=== PATIENT | female | born 1945 | race Caucasian/White ===

== ENCOUNTER 2018-01-01 13:35 | Emergency (ER) | payer MEDICARE, MEDICAID ==
[2018-01-01] MEDS ORDERED: methylPREDNISolone 125 MG* 2 ML VIAL IV ONE (13:43)
[2018-01-01] MEDS ORDERED: Famotidine IV* 10 MG/ML 2 ML (20 mg) IV SLOW PU ONE (13:43)
--- NOTE | 2018-01-01 13:48 | ED ---
Allergic Reaction/Systemic - HPI Summary HPI Summary: 72 year old F BIB EMS to [facility] complains of allergic reaction s/p multiple bee stings at 13:20. Symptoms aggravated by nothing. Symptoms alleviated by noting. Patient reports bee stings to her jaw, right eyebrow, right ankle, left ear, and left side of back. She additionally complains of slight throat closure, but not significant. EMS administered 50 mg Benadryl and 200 mL normal saline. Patient is allergic to bees. She usually has hives and swelling when she is stung. - History of Current Complaint Time Seen by Provider: 01/01/18 13:38 Hx Obtained From: Patient, EMS Onset/Duration: Sudden Onset, Started minutes ago - 20 minutes, Still Present Timing: Constant Aggravating Factor(s): Nothing Alleviating Factor(s): Nothing Associated Signs And Symptoms: Positive: Other: - bee stings to her jaw, right eyebrow, right ankle, left ear, and left side of back. She additionally complains of slight throat closure, but not significant. - Allergies/Home Medications Allergies/Adverse Reactions: Allergies Allergy/AdvReac Type Severity Reaction Status Date / Time silver sulfadiazine Allergy Severe Rash Verified 01/01/18 14:40 aspirin Allergy Intermediate Rash Verified 01/01/18 14:40 diltiazem Allergy Intermediate Edema Verified 01/01/18 14:40 doxycycline Allergy Intermediate Rash Verified 01/01/18 14:40 Penicillins Allergy Intermediate Rash Verified 01/01/18 14:40 triamterene Allergy Intermediate Hives Verified 01/01/18 14:40 Adhesive Tape Allergy Mild See Comment Verified 01/01/18 13:59 cephalexin Allergy Unknown Unknown Verified 01/01/18 14:40 Reaction Details cetirizine Allergy Unknown Unknown Verified 01/01/18 14:40 Reaction Details clindamycin Allergy Unknown Unknown Verified 01/01/18 14:40 Reaction Details erythromycin base Allergy Unknown Unknown Verified 01/01/18 14:40 Reaction Details lisinopril Allergy Unknown Unknown Verified 01/01/18 14:47 Reaction Details metoprolol Allergy Unknown Unknown Verified 01/01/18 14:47 Reaction Details nabumetone Allergy Unknown Unknown Verified 01/01/18 14:47 Reaction Details Opioids - Morphine Analogues Allergy Unknown Unknown Verified 01/01/18 14:47 Reaction Details Opioids-Meperidine and Allergy Unknown Unknown Verified 01/01/18 14:47 Related Reaction Details Opioids-Methadone and Related Allergy Unknown Unknown Verified 01/01/18 14:47 Reaction Details paroxetine Allergy Unknown Unknown Verified 01/01/18 14:47 Reaction Details ranitidine Allergy Unknown Unknown Verified 01/01/18 14:47 Reaction Details sodium metabisulfite Allergy Unknown Unknown Verified 01/01/18 14:47 Reaction Details azithromycin AdvReac Intermediate GI Upset Verified 01/01/18 14:47 bumetanide AdvReac Intermediate GI Upset Verified 01/01/18 14:47 codeine AdvReac Intermediate Palpitation Verified 01/01/18 14:47 s Iodinated Contrast- Oral and AdvReac Intermediate Pain Verified 01/01/18 14:47 IV Dye iodine AdvReac Intermediate Fever Verified 01/01/18 14:47 torsemide AdvReac Intermediate Palpitation Verified 01/01/18 14:47 s warfarin AdvReac Intermediate See Comment Verified 01/01/18 14:47 lidocaine patch Allergy Intermediate Blisters Uncoded 07/23/15 11:22 spirodela AdvReac Intermediate GI Upset Uncoded 09/14/15 04:32 Home Medications: Home Medications Linagliptin (NF) [Tradjenta (NF)] 5 mg PO DAILY 01/01/18 [History Confirmed ] PMH/Surg Hx/FS Hx/Imm Hx Previously Healthy: No Endocrine/Hematology History: Reports: Hx Anticoagulant Therapy - coumadin, Hx Anemia Denies: Hx Diabetes, Hx Thyroid Disease Cardiovascular History: Reports: Hx Angina, Hx Congestive Heart Failure, Hx Hypertension, Hx Valvular Heart Disease - s/p mitral valve replacement 2006 Denies: Hx Coronary Artery Disease, Hx Hypercholesterolemia, Hx Myocardial Infarction, Hx Pacemaker/ICD Respiratory History: Denies: Hx Asthma, Hx Chronic Obstructive Pulmonary Disease (COPD) GI History: Reports: Hx Gastroesophageal Reflux Disease History: Denies: Hx Renal Disease Musculoskeletal History: Reports: Hx Arthritis - knees, Hx Back Problems - disc issues in lower back and in neck Sensory History: Reports: Hx Cataracts, Hx Contacts or Glasses, Hx Glaucoma Opthamlomology History: Reports: Hx Cataracts, Hx Contacts or Glasses, Hx Glaucoma Neurological History: Denies: Hx Dementia, Hx Seizures Psychiatric History: Reports: Hx Anxiety, Hx Depression Denies: Hx Substance Abuse - Surgical History Surgery Procedure, Year, and Place: Mitral Valve Replacement 2006. Hx Anesthesia Reactions: Yes - multiple allergies to medications - Immunization History Date of Tetanus Vaccine: Unknown Date of Influenza Vaccine: None Infectious Disease History: Denies: Hx Hepatitis, Hx Human Immunodeficiency Virus (HIV) - Family History Known Family History: Positive: Cardiac Disease - [place] - Social History Alcohol Use: None Hx Substance Use: No Substance Use Type: Reports: None Hx Tobacco Use: No Smoking Status (MU): Never Smoked Tobacco Review of Systems Positive: Other - slight throat closure Positive: Other - bee stings to her jaw, right eyebrow, right ankle, left ear, and left side of back All Other Systems Reviewed And Are Negative: Yes Physical Exam - Summary Physical Exam Summary: Appearance: The patient is well-nourished in no acute distress and in no acute pain. Skin: She has bee stings that have mild local reactions diffusely. There are no stingers evident. HEENT: The head is normocephalic and atraumatic. The pupils are equal and reactive. The conjunctivae are clear and without drainage. Nares are patent and without drainage. Mouth reveals moist mucous membranes and the throat is without erythema and exudate. The external ears are intact. The ear canals are patent and without drainage. The tympanic membranes are intact. Neck: The neck is supple with full range of motion and non-tender. There are no carotid bruits. There is no neck vein distension. Respiratory: Chest is non-tender. Lungs are clear to auscultation and breath sounds are symmetrical and equal. Cardiovascular: Heart is regular rate and rhythm. There is no murmur or rub auscultated. There is no peripheral edema and pulses are symmetrical and equal. Abdomen: The abdomen is soft and non-tender. There are normal bowel sounds heard in all four quadrants and there is no organomegaly palpated. Musculoskeletal: There is no back tenderness noted. Extremities are non-tender with full range of motion. There is good capillary refill. There is no peripheral edema or calf tenderness elicited. Neurological: Patient is alert and oriented to person, place and time. The patient has symmetrical motor strength in all four extremities. Cranial nerves are grossly intact. Deep tendon reflexes are symmetrical and equal in all four extremities. Psychiatric: The patient has an appropriate affect and does not exhibit any anxiety or depression. Triage Information Reviewed: Yes Vital Signs Reviewed: Yes Re-Evaluation - Re-Evaluation First Eval Re-Evaluation Time: 14:50 Comment: Patient is feeling better after medication Second Eval Re-Evaluation Time: 16:13 Comment: Patient feels better and is ready to go home Allergic Reaction Course/Dx - Course Course Of Treatment: Ms. Mora presented after being stung multiple times by insects. She had multiple areas of stings on her with no stingers left behind. She had been given Benadryl in the ambulance and was additionally given Pepcid and Solu-Medrol here and observed. She improved and remained stable in the emergency department. - Diagnoses Provider Diagnoses: Allergic reaction Discharge - Sign-Out/Discharge Documenting (check all that apply): Patient Departure - Discharge - Discharge Plan Condition: Stable Disposition: HOME Prescriptions: EPINEPHrine [Epipen 2-Silver] 0.3 mg IM ONCE #1 inj Patient Education Materials: Insect Bite or Sting (ED), General Allergic Reaction (ED) Referrals: Tabitha Rojas MD [Primary Care Provider] - 2 Days Additional Instructions: Follow up with your primary care provider in 2 days. RETURN TO THE EMERGENCY DEPARTMENT FOR NEW OR WORSENING SYMPTOMS. - Billing Disposition and Condition Condition: STABLE Disposition: Home - Attestation Statements Document Initiated by Scribe: Yes Documenting Scribe: Eleonora Ware Provider For Whom Fabien is Documenting (Include Credential): Mickey Obando MD Scribe Attestation: Eleonora Kamara, scribed for Mickey Obando MD on 01/01/18 at 1807. Scribe Documentation Reviewed: Yes Provider Attestation: The documentation as recorded by the scribeEleonora accurately reflects the service I personally performed and the decisions made by me, Mickey Obando MD
[2018-01-01 16:26] VITALS: BP 148/82
== END 2018-01-01 16:50 | disposition home or self-care (01) ==
LOC: ED 13:35
CPT/HCPCS: J2930

== ENCOUNTER 2018-11-23 19:14 | Emergency (ER) | payer MEDICARE, MEDICAID ==
--- NOTE | 2018-11-23 20:34 | ED ---
GI/ HPI - HPI Summary HPI Summary: A 73 y/o female presents to [facility] with a chief complaint of left sided flank pain and back pain since yesterday. She notes that yesterday night and tonight she had tightness of her throat, but has no sore or itching throat, CP, SOB, abd pain, N/V diarrhea, urinary symptoms, new swelling in legs, or fatigue with exertion. She says that Tylenol has not alleviated her symptoms. Stretching alleviates her symptoms. She is on Coumadin. - History of Current Complaint Chief Complaint: EDFlankPain Time Seen by Provider: 11/23/18 19:38 Stated Complaint: SHARP PAIN IN BACK, THROAT SWELLING PER PT Hx Obtained From: Patient Onset/Duration: Started Hours Ago, Still Present Timing: Constant, Lasting Hours Severity: Moderate Current Severity: Moderate Pain Intensity: 6 - out of 10 Location of Pain: Flank Pain Characteristics: Unable to describe Associated Signs and Symptoms: Positive: Back Pain - left lower back, Other: - positive: throat tightening. Negative: Nausea, Vomiting, Diarrhea, Fever, Abdominal Pain, Chest Pain Aggravating Factor(s): Nothing Alleviating Factor(s): Movement - stretching - Allergy/Home Medications Allergies/Adverse Reactions: Allergies Allergy/AdvReac Type Severity Reaction Status Date / Time silver sulfadiazine Allergy Severe Rash Verified 01/01/18 14:40 aspirin Allergy Intermediate Rash Verified 01/01/18 14:40 diltiazem Allergy Intermediate Edema Verified 01/01/18 14:40 doxycycline Allergy Intermediate Rash Verified 01/01/18 14:40 Penicillins Allergy Intermediate Rash Verified 01/01/18 14:40 triamterene Allergy Intermediate Hives Verified 01/01/18 14:40 Adhesive Tape Allergy Mild See Comment Verified 01/01/18 13:59 cephalexin Allergy Unknown Unknown Verified 01/01/18 14:40 Reaction Details cetirizine Allergy Unknown Unknown Verified 01/01/18 14:40 Reaction Details clindamycin Allergy Unknown Unknown Verified 01/01/18 14:40 Reaction Details erythromycin base Allergy Unknown Unknown Verified 01/01/18 14:40 Reaction Details lisinopril Allergy Unknown Unknown Verified 01/01/18 14:47 Reaction Details metoprolol Allergy Unknown Unknown Verified 01/01/18 14:47 Reaction Details nabumetone Allergy Unknown Unknown Verified 01/01/18 14:47 Reaction Details Opioids - Morphine Analogues Allergy Unknown Unknown Verified 01/01/18 14:47 Reaction Details Opioids-Meperidine and Allergy Unknown Unknown Verified 01/01/18 14:47 Related Reaction Details Opioids-Methadone and Related Allergy Unknown Unknown Verified 01/01/18 14:47 Reaction Details paroxetine Allergy Unknown Unknown Verified 01/01/18 14:47 Reaction Details ranitidine Allergy Unknown Unknown Verified 01/01/18 14:47 Reaction Details sodium metabisulfite Allergy Unknown Unknown Verified 01/01/18 14:47 Reaction Details azithromycin AdvReac Intermediate GI Upset Verified 01/01/18 14:47 bumetanide AdvReac Intermediate GI Upset Verified 01/01/18 14:47 codeine AdvReac Intermediate Palpitation Verified 01/01/18 14:47 s Iodinated Contrast- Oral and AdvReac Intermediate Pain Verified 01/01/18 14:47 IV Dye iodine AdvReac Intermediate Fever Verified 01/01/18 14:47 torsemide AdvReac Intermediate Palpitation Verified 01/01/18 14:47 s warfarin AdvReac Intermediate See Comment Verified 01/01/18 14:47 lidocaine patch Allergy Intermediate Blisters Uncoded 07/23/15 11:22 metals Allergy Rash Uncoded 11/23/18 19:18 spirodela AdvReac Intermediate GI Upset Uncoded 09/14/15 04:32 PMH/Surg Hx/FS Hx/Imm Hx Endocrine/Hematology History: Reports: Hx Anticoagulant Therapy - coumadin, Hx Anemia Denies: Hx Diabetes, Hx Thyroid Disease Cardiovascular History: Reports: Hx Angina, Hx Congestive Heart Failure, Hx Hypertension, Hx Valvular Heart Disease - s/p mitral valve replacement 2006 Denies: Hx Coronary Artery Disease, Hx Hypercholesterolemia, Hx Myocardial Infarction, Hx Pacemaker/ICD Respiratory History: Denies: Hx Asthma, Hx Chronic Obstructive Pulmonary Disease (COPD) GI History: Reports: Hx Gastroesophageal Reflux Disease History: Denies: Hx Renal Disease Musculoskeletal History: Reports: Hx Arthritis - knees, Hx Back Problems - disc issues in lower back and in neck Sensory History: Reports: Hx Cataracts, Hx Contacts or Glasses, Hx Glaucoma Opthamlomology History: Reports: Hx Cataracts, Hx Contacts or Glasses, Hx Glaucoma Neurological History: Denies: Hx Dementia, Hx Seizures Psychiatric History: Reports: Hx Anxiety, Hx Depression Denies: Hx Substance Abuse - Surgical History Surgery Procedure, Year, and Place: Mitral Valve Replacement 2006. Hx Anesthesia Reactions: Yes - multiple allergies to medications - Immunization History Date of Tetanus Vaccine: Unknown Date of Influenza Vaccine: None Immunizations Up to Date: Yes Infectious Disease History: No Infectious Disease History: Denies: Hx Hepatitis, Hx Human Immunodeficiency Virus (HIV), Traveled Outside the [place] in Last 30 Days - Family History Known Family History: Positive: Cardiac Disease - [place] - Social History Alcohol Use: None Hx Substance Use: No Substance Use Type: Reports: None Hx Tobacco Use: No Smoking Status (MU): Never Smoked Tobacco Review of Systems Negative: Fever, Fatigue Positive: Other - positive: throat tightening. Negative: Sore Throat Negative: Chest Pain Negative: Shortness Of Breath Negative: Abdominal Pain, Vomiting, Diarrhea, Nausea Positive: flank pain - left. Negative: dysuria, hematuria Positive: Myalgia - left lower back pain All Other Systems Reviewed And Are Negative: Yes Physical Exam - Summary Physical Exam Summary: Constitutional: Well-developed, Well-nourished, Alert. (-) Distressed Skin: Warm, Dry, no rash HENT: Normocephalic; Atraumatic Eyes: Conjunctiva normal Neck: Musculoskeletal ROM normal neck. (-) JVD, (-) Stridor, (-) Tracheal deviation Cardio: Rhythm regular, rate normal, Heart sounds normal; Intact distal pulses; The pedal pulses are 2+ and symmetric. Radial pulses are 2+ and symmetric. (-) Murmur Pulmonary/Chest wall: Effort normal. (-) Respiratory distress, (-) Wheezes, (-) Rales Abd: Soft, left lateral pain extending to left flank, (-) Distension, (-) Guarding, (-) Rebound Musculoskeletal: (-) Edema, tenderness at T7 and again at L5 Lymph: (-) Cervical adenopathy Neuro: Alert, Oriented x3 Psych: Mood and affect Normal Triage Information Reviewed: Yes Vital Signs On Initial Exam: Initial Vitals Temp Pulse Resp BP Pulse Ox 97.9 F 83 18 199/106 99 11/23/18 19:18 11/23/18 19:18 11/23/18 19:18 11/23/18 19:18 11/23/18 19:18 Vital Signs Reviewed: Yes Diagnostics - Vital Signs Vital Signs Temp Pulse Resp BP Pulse Ox 11/23/18 19:18 97.9 F 83 18 199/106 99 - Laboratory Result Diagrams: 11/23/18 22:08 11/23/18 22:08 Lab Statement: Any lab studies that have been ordered have been reviewed, and results considered in the medical decision making process. - Radiology Thoracic spine x-ray Radiology Interpretation Completed By: ED Physician Summary of Radiographic Findings: Compression fracture of undetermined age at T10 and severe kyphosis. Pending official imaging report. - CT abdomen/pelvis CT Interpretation Completed By: Radiologist Summary of CT Findings: 1. No CT findings to correlate with patient's symptomatology. Specifically no obstructing renal or ureteral calculi. 2. Enlarged right ovary. Finding should be further characterized with. nonemergent ultrasound. 3. Distal colonic diverticulosis. ED physician has reviewed this imaging report. GIGU Course/Dx - Course Course Of Treatment: A 73 y/o female presents to [facility] with a chief complaint of left sided flank pain and back pain since yesterday. The physical exam revealed tenderness at T7 and again at L5, left lateral pain extending to left flank, and no rash. In the ED course the patient was given Benadryl PO. Blood work, chemistries and urines obtained and are WNL. Abdomen/pelvis CT impression : 1. No CT findings to correlate with patient's symptomatology. Specifically no obstructing renal or ureteral calculi. 2. Enlarged right ovary. Finding should be further characterized with. nonemergent ultrasound. 3. Distal colonic diverticulosis. Thoracic spine x-ray showed Compression fracture of undetermined age at T10 and severe kyphosis. The pain that she is complaining of is her lower left back and she is only tender in her lower back therefore this is likely not an acute compression fracture and the patient can be discharged and follow up as an outpatient. The patient is agreeable with this plan. - Diagnoses Provider Diagnoses: Back pain, Compression fracture Discharge - Sign-Out/Discharge Documenting (check all that apply): Patient Departure - DC Patient Received Moderate/Deep Sedation with Procedure: No - Discharge Plan Condition: Stable Disposition: HOME Prescriptions: Diclofenac 1% GEL (NF) [Voltaren 1% GEL (NF)] 1 applic TOPICAL BID PRN #1 tube PRN Reason: Pain - Mild Patient Education Materials: Vertebral Compression Fracture (ED), Low Back Strain (ED) Print Language: PERUVIAN Referrals: Tabitha Rojas MD [Primary Care Provider] - - Billing Disposition and Condition Condition: STABLE Disposition: Home - Attestation Statements Document Initiated by Carleyibaung: Yes Documenting Scribe: Mark Dominguez Provider For Whom Fabien is Documenting (Include Credential): Erin Garcia MD Scribe Attestation: IMark, scribed for Erin Zimmer MD on 11/24/18 at 0641. Scribe Documentation Reviewed: Yes Provider Attestation: The documentation as recorded by the Mark benson accurately reflects the service I personally performed and the decisions made by me, Erin Zimmer MD Status of Scribe Document: Viewed
[2018-11-23] MEDS ORDERED: diPHENhydraMINE PO* 50 MG PO ONE (20:52)
[2018-11-23 22:28] LABS: ABS Eosinophils 0.4 10^3/ul (0-0.6); ABS Lymphocytes 1.2 10^3/ul (1.0-4.8); ABS Monocytes 0.5 10^3/ul (0-0.8); ABS Neutrophils 3.7 10^3/ul (1.5-7.7); Eosinophil % 6.1 %; Hematocrit 39 % (35-47); Hemoglobin 12.7 g/dL (12.0-16.0); Lymphocyte % 20.1 %; Mean Corpuscular HGB Conc 32 g/dL (31-36); Mean Corpuscular Hemoglobin 24 pg (27-31); Mean Corpuscular Volume 73 fL (80-97); Mean Platelet Volume 8.5 fL (7.4-10.4); Nucleated Red Blood Cells % 0.1; Platelet Count 268 10^3/uL (150-450); Red Blood Count 5.37 10^6 /uL (3.70-4.87); Red Cell Distribution Width 19 % (10-15); White Blood Count 5.8 10^3/uL (3.5-10.8)
[2018-11-23 22:31] LABS: Urine Appearance Clear; Urine Bilirubin Negative (Negative); Urine Blood Negative (Negative); Urine Color Straw; Urine Glucose Negative (Negative); Urine Ketones Negative (Negative); Urine Nitrite Negative (Negative); Urine Protein Negative (Negative); Urine Specific Gravity 1.004 (1.010-1.030); Urine Urobilinogen Negative (Negative)
[2018-11-23 22:32] LABS: ALT 11 U/L (7-52); AST 14 U/L (13-39); Albumin 4.4 g/dL (3.2-5.2); Albumin/Globulin Ratio 1.3 (1-3); Alkaline Phosphatase 173 U/L (34-104); Anion Gap 7 mmol/L (2-11); BUN/Creatinine Ratio 11.2 (8-20); Blood Urea Nitrogen 10 mg/dL (6-24); C Reactive Protein 6.61 mg/L (<8.01); CO2 Carbon Dioxide 28 mmol/L (22-32); Chloride 100 mmol/L (101-111); Globulin 3.3 g/dL (2-4); Glucose 219 mg/dL (70-100); Potassium 3.9 mmol/L (3.5-5.0); Sodium 135 mmol/L (135-145); Total Protein 7.7 g/dL (6.4-8.9)
[2018-11-23 23:47] VITALS: BP 147/89
== END 2018-11-23 23:25 | disposition home or self-care (01) ==
LOC: ED 19:14
DX: M48.54XA Collapsed vertebra, not elsewhere classified, thoracic region, initial encounter for fracture (principal); M54.9 Dorsalgia, unspecified; D64.9 Anemia, unspecified; K57.30 Diverticulosis of large intestine without perforation or abscess without bleeding; I11.0 Hypertensive heart disease with heart failure; I50.9 Heart failure, unspecified; K21.9 Gastro-esophageal reflux disease without esophagitis; F41.9 Anxiety disorder, unspecified; F32.9 Major depressive disorder, single episode, unspecified; Z79.01 Long term (current) use of anticoagulants; Z88.5 Allergy status to narcotic agent; Z88.0 Allergy status to penicillin; Z88.2 Allergy status to sulfonamides; Z88.8 Allergy status to other drugs, medicaments and biological substances; Z88.6 Allergy status to analgesic agent; Z88.1 Allergy status to other antibiotic agents; Z91.041 Radiographic dye allergy status
CPT/HCPCS: 36415; 72070; 74176; 80053; 81003; 83605; 83690; 85025; 86140; 99283; A9270-GY

== ENCOUNTER 2018-11-28 15:36 | Emergency (ER) | payer MEDICARE, MEDICAID ==
[2018-11-28 17:09] LABS: ABS Eosinophils 0.4 10^3/ul (0-0.6); ABS Lymphocytes 1.2 10^3/ul (1.0-4.8); ABS Monocytes 0.5 10^3/ul (0-0.8); ABS Neutrophils 3.7 10^3/ul (1.5-7.7); Eosinophil % 6.2 %; Hematocrit 39 % (35-47); Hemoglobin 12.3 g/dL (12.0-16.0); Lymphocyte % 20.7 %; Mean Corpuscular HGB Conc 32 g/dL (31-36); Mean Corpuscular Hemoglobin 23 pg (27-31); Mean Corpuscular Volume 74 fL (80-97); Mean Platelet Volume 8.2 fL (7.4-10.4); Nucleated Red Blood Cells % 0.1; Platelet Count 250 10^3/uL (150-450); Red Blood Count 5.29 10^6 /uL (3.70-4.87); Red Cell Distribution Width 19 % (10-15); White Blood Count 5.9 10^3/uL (3.5-10.8)
[2018-11-28 17:18] LABS: Albumin 4.3 g/dL (3.2-5.2); Albumin/Globulin Ratio 1.3 (1-3); BUN/Creatinine Ratio 10.2 (8-20); C Reactive Protein 4.53 mg/L (<8.01); Calcium 9.6 mg/dL (8.6-10.3); EGFR Non-African American 62.8 (>60); Globulin 3.2 g/dL (2-4); Potassium 4.1 mmol/L (3.5-5.0); Total Bilirubin 0.4 mg/dL (0.2-1.0); Total Protein 7.5 g/dL (6.4-8.9)
[2018-11-28 18:37] LABS: Urine Appearance Cloudy; Urine Bacteria 1+ (Absent); Urine Bilirubin Negative (Negative); Urine Blood Negative (Negative); Urine Color Straw; Urine Glucose Negative (Negative); Urine Ketones Negative (Negative); Urine Nitrite Negative (Negative); Urine Protein Negative (Negative); Urine Red Blood Cell Trace(0-2/hpf) (Absent); Urine Specific Gravity 1.005 (1.010-1.030); Urine Squamous Epithelial Cell Present (Absent); Urine Urobilinogen Negative (Negative); Urine White Blood Cell 1+(6-10/hpf) (Absent)
--- NOTE | 2018-11-28 19:42 | ED ---
Abdominal Pain/Female - HPI Summary HPI Summary: This patient is a 73 year old F presenting to [facility] with a chief complaint of burning lower left abdominal pain since today. Pt came into the ED on 11/21/18 for back pain, and was given a prescription gel (diclofenac), which caused her skin on back to become very sensitive, and caused it to burn. Pt also had a blister on her back, which drained. Patient reports since last night she nausea , vomiting, abdominal pain, loss of appetite so she came to ED. She also reports chronic upper back pain, and sharp lower back pain (beginning 11/22/18) for which she used the gel. Patient denies burning during urination, no fevers. No vaginal bleeding. Pt has a PMHx of gall bladder issues, diabetic, and heart issues. - History of Current Complaint Chief Complaint: EDFlankPain Stated Complaint: LT SIDE PAIN/VOMITING PER PT Time Seen by Provider: 11/28/18 18:12 Hx Obtained From: Patient Onset/Duration: Gradual Onset, Lasting Days, Still Present Timing: Constant Severity Initially: Moderate Severity Currently: Moderate Pain Intensity: 6 Pain Scale Used: 0-10 Numeric Location: Flank Radiates: Yes Radiates to: Back Character: Burning Alleviating Factor(s): Nothing Associated Signs and Symptoms: Positive: Decreased Appetite, Nausea, Vomiting, Other: - pos - chronic upper back pain, and sharp lower back pain. Negative: Urinary Symptoms Allergies/Adverse Reactions: Allergies Allergy/AdvReac Type Severity Reaction Status Date / Time silver sulfadiazine Allergy Severe Rash Verified 01/01/18 14:40 aspirin Allergy Intermediate Rash Verified 01/01/18 14:40 diltiazem Allergy Intermediate Edema Verified 01/01/18 14:40 doxycycline Allergy Intermediate Rash Verified 01/01/18 14:40 Penicillins Allergy Intermediate Rash Verified 01/01/18 14:40 triamterene Allergy Intermediate Hives Verified 01/01/18 14:40 Adhesive Tape Allergy Mild See Comment Verified 01/01/18 13:59 cephalexin Allergy Unknown Unknown Verified 01/01/18 14:40 Reaction Details cetirizine Allergy Unknown Unknown Verified 01/01/18 14:40 Reaction Details clindamycin Allergy Unknown Unknown Verified 01/01/18 14:40 Reaction Details erythromycin base Allergy Unknown Unknown Verified 01/01/18 14:40 Reaction Details lisinopril Allergy Unknown Unknown Verified 01/01/18 14:47 Reaction Details metoprolol Allergy Unknown Unknown Verified 01/01/18 14:47 Reaction Details nabumetone Allergy Unknown Unknown Verified 01/01/18 14:47 Reaction Details Opioids - Morphine Analogues Allergy Unknown Unknown Verified 01/01/18 14:47 Reaction Details Opioids-Meperidine and Allergy Unknown Unknown Verified 01/01/18 14:47 Related Reaction Details Opioids-Methadone and Related Allergy Unknown Unknown Verified 01/01/18 14:47 Reaction Details paroxetine Allergy Unknown Unknown Verified 01/01/18 14:47 Reaction Details ranitidine Allergy Unknown Unknown Verified 01/01/18 14:47 Reaction Details sodium metabisulfite Allergy Unknown Unknown Verified 01/01/18 14:47 Reaction Details azithromycin AdvReac Intermediate GI Upset Verified 01/01/18 14:47 bumetanide AdvReac Intermediate GI Upset Verified 01/01/18 14:47 codeine AdvReac Intermediate Palpitation Verified 01/01/18 14:47 s Iodinated Contrast Media AdvReac Intermediate Pain Verified 01/01/18 14:47 [Iodinated Contrast- Oral and IV Dye] iodine AdvReac Intermediate Fever Verified 01/01/18 14:47 torsemide AdvReac Intermediate Palpitation Verified 01/01/18 14:47 s warfarin AdvReac Intermediate See Comment Verified 01/01/18 14:47 lidocaine patch Allergy Intermediate Blisters Uncoded 07/23/15 11:22 metals Allergy Rash Uncoded 11/23/18 19:18 spirodela AdvReac Intermediate GI Upset Uncoded 09/14/15 04:32 PMH/Surg Hx/FS Hx/Imm Hx Endocrine/Hematology History: Reports: Hx Anticoagulant Therapy - coumadin, Hx Anemia Denies: Hx Diabetes, Hx Thyroid Disease Cardiovascular History: Reports: Hx Angina, Hx Congestive Heart Failure, Hx Hypertension, Hx Valvular Heart Disease - s/p mitral valve replacement 2006 Denies: Hx Coronary Artery Disease, Hx Hypercholesterolemia, Hx Myocardial Infarction, Hx Pacemaker/ICD Respiratory History: Denies: Hx Asthma, Hx Chronic Obstructive Pulmonary Disease (COPD) GI History: Reports: Hx Gastroesophageal Reflux Disease History: Denies: Hx Renal Disease Musculoskeletal History: Reports: Hx Arthritis - knees, Hx Back Problems - disc issues in lower back and in neck Sensory History: Reports: Hx Cataracts, Hx Contacts or Glasses, Hx Glaucoma Opthamlomology History: Reports: Hx Cataracts, Hx Contacts or Glasses, Hx Glaucoma Neurological History: Denies: Hx Dementia, Hx Seizures Psychiatric History: Reports: Hx Anxiety, Hx Depression Denies: Hx Substance Abuse - Surgical History Surgery Procedure, Year, and Place: Mitral Valve Replacement 2006. Hx Anesthesia Reactions: Yes - multiple allergies to medications - Immunization History Date of Tetanus Vaccine: Unknown Date of Influenza Vaccine: None Infectious Disease History: No Infectious Disease History: Denies: Hx Hepatitis, Hx Human Immunodeficiency Virus (HIV), Traveled Outside the [place] in Last 30 Days - Family History Known Family History: Positive: Cardiac Disease - [place] - Social History Alcohol Use: None Hx Substance Use: No Substance Use Type: Reports: None Hx Tobacco Use: No Smoking Status (MU): Never Smoked Tobacco Review of Systems Positive: Other - pos - loss of appetite Positive: Abdominal Pain, Vomiting, Nausea Negative: burning Positive: Other - pos - chronic upper back pain, and sharp lower back pain All Other Systems Reviewed And Are Negative: Yes Physical Exam - Summary Physical Exam Summary: Constitutional: Obese, Alert. (-) Distressed Skin: Warm, Dry, healing 0.5 cm blister to L flank HENT: Normocephalic; Atraumatic Eyes: Conjunctiva normal Neck: Musculoskeletal ROM normal neck. (-) JVD, (-) Stridor, (-) Nuchal rigidity Cardio: Rhythm regular, rate normal, Heart sounds normal; Intact distal pulses; Radial pulses are 2+ Pulmonary/Chest wall: Effort normal. (-) Respiratory distress, (-) Wheezes, (-) Rales Abd: Soft, Mild L upper and lower quadrant tenderness, (-) Distension, (-) Guarding, (-) Rebound Musculoskeletal: (-) Edema Lymph: (-) Cervical adenopathy Neuro: Alert, Oriented x3 Psych: Mood and affect Normal Triage Information Reviewed: Yes Vital Signs On Initial Exam: Initial Vitals Temp Pulse Resp BP Pulse Ox 98.5 F 77 18 147/90 95 11/28/18 15:48 11/28/18 15:48 11/28/18 15:48 11/28/18 15:48 11/28/18 15:48 Vital Signs Reviewed: Yes Diagnostics - Vital Signs Vital Signs Temp Pulse Resp BP Pulse Ox 11/28/18 15:48 98.5 F 77 18 147/90 95 - Laboratory Lab Results: Lab Results 11/28/18 11/28/18 11/28/18 Range/Units 16:40 16:40 18:25 WBC 5.9 (3.5-10.8) 10^3/uL RBC 5.29 H (3.70-4.87) 10^6 /uL Hgb 12.3 (12.0-16.0) g/dL Hct 39 (35-47) % MCV 74 L (80-97) fL MCH 23 L (27-31) pg MCHC 32 (31-36) g/dL RDW 19 H (10-15) % Plt Count 250 (150-450) 10^3/uL MPV 8.2 (7.4-10.4) fL Neut % (Auto) 63.6 % Lymph % (Auto) 20.7 % [place] % (Auto) 9.3 % Eos % (Auto) 6.2 % Baso % (Auto) 0.2 % Absolute Neuts (auto) 3.7 (1.5-7.7) 10^3/ul Absolute Lymphs (auto) 1.2 (1.0-4.8) 10^3/ul Absolute Monos (auto) 0.5 (0-0.8) 10^3/ul Absolute Eos (auto) 0.4 (0-0.6) 10^3/ul Absolute Basos (auto) 0.0 (0-0.2) 10^3/ul Absolute Nucleated RBC 0.0 10^3/ul Nucleated RBC % 0.1 Sodium 134 L (135-145) mmol/L Potassium 4.1 (3.5-5.0) mmol/L Chloride 101 (101-111) mmol/L Carbon Dioxide 27 (22-32) mmol/L Anion Gap 6 (2-11) mmol/L BUN 9 (6-24) mg/dL Creatinine 0.88 (0.51-0.95) mg/dL Est GFR ( Amer) 76.0 (>60) Est GFR (Non-Af Amer) 62.8 (>60) BUN/Creatinine Ratio 10.2 (8-20) Glucose 205 H (70-100) mg/dL Calcium 9.6 (8.6-10.3) mg/dL Total Bilirubin 0.40 (0.2-1.0) mg/dL AST 16 (13-39) U/L ALT 9 (7-52) U/L Alkaline Phosphatase 153 H (34-104) U/L C-Reactive Protein 4.53 (<8.01) mg/L Total Protein 7.5 (6.4-8.9) g/dL Albumin 4.3 (3.2-5.2) g/dL Globulin 3.2 (2-4) g/dL Albumin/Globulin Ratio 1.3 (1-3) Urine Color Straw Urine Appearance Cloudy Urine pH 6.0 (5-9) Ur Specific [place] 1.005 L (1.010-1.030) Urine Protein Negative (Negative) Urine Ketones Negative (Negative) Urine Blood Negative (Negative) Urine Nitrate Negative (Negative) Urine Bilirubin Negative (Negative) Urine Urobilinogen Negative (Negative) Ur Leukocyte Esterase 1+ A (Negative) Urine WBC (Auto) 1+(6-10/hpf) A (Absent) Urine RBC (Auto) Trace(0-2/hpf) (Absent) Ur Squamous Epith Cells Present A (Absent) Urine Bacteria 1+ A (Absent) Urine Glucose Negative (Negative) Result Diagrams: 11/28/18 16:40 11/28/18 16:40 Lab Statement: Any lab studies that have been ordered have been reviewed, and results considered in the medical decision making process. - EKG 1936 EKG Rhythm: Atrial Fibrillation EKG Comparison: No Significant Change Summary of EKG Findings: An EKG at 1937 reveals a fib 75 bpm , no change from prior EKG in 2013. Re-Evaluation - Re-Evaluation First Eval Re-Evaluation Time: 20:20 Comment: D/w patient normal CT and labs including cardiac w/u. She has multiple allergies so cannot take much for pain. Pt is comfortable going home, we will give her Zofran for nausea, and she will take tylenol for pain at home. Abdominal Pain Fem Course/Dx - Course Course Of Treatment: 73-year-old female with history of mitral valve replacement , diabetes who presents with chronic back and left sided abdominal pain. Patient is back pain is chronic and has no changes or pain, no bowel or bladder incontinence, no weakness or numbness. DDx includes pancreatitis, GERD, renal stone, Cholecystitis, diverticulitis, SBO. Exam relatively unremarkable today, no rigidity or suggestions of acute surgical abd. Pt with negative Ortiz's on exam. Lipase to evaluate for pancreatitis. Will obtain cbc to assess for underlying infection. Trop for atypical symptoms of nausea. Less likely ovarian torsion given location of pain and no focal TTP on exam, does not describe sudden onset of pain. PT denies pelvic pain and vaginal discharge. No dysuria or hematuria. Re: blister to left flank, patient states happened after using diclofenac cream. Low suspicion for zoster given no dermatomal distribution of rash and patient states that this all began after using a medication. - Diagnoses Provider Diagnoses: Abdominal pain, Nausea Discharge - Sign-Out/Discharge Documenting (check all that apply): Patient Departure - Dicharge Patient Received Moderate/Deep Sedation with Procedure: No - Discharge Plan Condition: Stable Disposition: HOME Patient Education Materials: Abdominal Pain (ED) Referrals: Tabitha Rojas MD [Primary Care Provider] - Additional Instructions: You were seen in the emergency department for abdominal pain. Your labs did not show any significant abnormalities. We sent a urine culture and if it grows any bacteria we will call you with antibiotics. Your CT scan did not show any abnormalities. If any studies were not completed at the time of discharge you will be called with the relevant results. Please follow up with your primary care doctor in next 2-3 days and return to emergency department for worsening or concerning symptoms. - Billing Disposition and Condition Condition: STABLE Disposition: Home - Attestation Statements Document Initiated by Fabien: Yes Documenting Scribe: Kandi Simental Provider For Whom Fabien is Documenting (Include Credential): Dr. Nancy Morrison MD Scribe Attestation: Kandi Kamara scribed for Dr. Nancy Morrison MD on 11/28/18 at 2021. Scribe Documentation Reviewed: Yes Provider Attestation: The documentation as recorded by the Kandi benson accurately reflects the service I personally performed and the decisions made by me, Dr. Nancy Morrison MD Status of Scribe Document: Viewed
[2018-11-28] MEDS ORDERED: Ondansetron TAB* 4 MG PO ONE (20:20)
[2018-11-28 20:34] VITALS: BP 164/100
== END 2018-11-28 20:33 | disposition home or self-care (01) ==
LOC: ED 15:36
DX: R10.9 Unspecified abdominal pain (principal); R11.0 Nausea; K57.30 Diverticulosis of large intestine without perforation or abscess without bleeding; D64.9 Anemia, unspecified; I50.9 Heart failure, unspecified; I11.0 Hypertensive heart disease with heart failure; K21.9 Gastro-esophageal reflux disease without esophagitis; F41.9 Anxiety disorder, unspecified; F32.9 Major depressive disorder, single episode, unspecified; Z79.01 Long term (current) use of anticoagulants; Z88.6 Allergy status to analgesic agent; Z88.1 Allergy status to other antibiotic agents; Z88.5 Allergy status to narcotic agent; Z88.0 Allergy status to penicillin; Z88.2 Allergy status to sulfonamides; Z88.8 Allergy status to other drugs, medicaments and biological substances; Z91.048 Other nonmedicinal substance allergy status; Z91.041 Radiographic dye allergy status
CPT/HCPCS: 36415; 74176; 80053; 81003; 81015; 83690; 84484; 85025; 86140; 87086; 93005; 99282; A9270-GY

== ENCOUNTER 2020-01-10 12:53 | Inpatient (IN) ==
[2020-01-10] MEDS ORDERED: Magnesium Sulfate IV 1GM/100ML 1 GM/100 ML BAG IV ONE (13:39)
[2020-01-10 14:03] LABS: ABS Basophils 0.1 10^3/ul (0-0.2); ABS Lymphocytes 1.1 10^3/ul (1.0-4.8); ABS Monocytes 0.8 10^3/ul (0-0.8); ABS Neutrophils 8.5 10^3/ul (1.5-7.7); Eosinophil % 0.1 %; Hematocrit 41 % (35-47); Hemoglobin 12.9 g/dL (12.0-16.0); Lymphocyte % 10.2 %; Mean Corpuscular HGB Conc 31 g/dL (31-36); Mean Corpuscular Hemoglobin 23 pg (27-31); Mean Corpuscular Volume 74 fL (80-97); Mean Platelet Volume 9.1 fL (7.4-10.4); Nucleated Red Blood Cells % 0.3; Platelet Count 247 10^3/uL (150-450); Red Blood Count 5.59 10^6 /uL (3.70-4.87); Red Cell Distribution Width 20 % (10-15); White Blood Count 10.5 10^3/uL (3.5-10.8)
[2020-01-10 14:11] LABS: INR 2.97 (0.82-1.09)
[2020-01-10 14:20] LABS: ALT 348 U/L (7-52); AST 161 U/L (13-39); Albumin 3.9 g/dL (3.2-5.2); Albumin/Globulin Ratio 1.2 (1-3); Alkaline Phosphatase 312 U/L (34-104); Anion Gap 12 mmol/L (2-11); BUN/Creatinine Ratio 35.4 (8-20); Blood Urea Nitrogen 29 mg/dL (6-24); CO2 Carbon Dioxide 21 mmol/L (22-32); Calcium 9.6 mg/dL (8.6-10.3); Chloride 105 mmol/L (101-111); Creatine Kinase 363 U/L (10-223); EGFR African American 82.2 (>60); Globulin 3.2 g/dL (2-4); Glucose 288 mg/dL (70-100); Magnesium 2.2 mg/dL (1.9-2.7); Sodium 138 mmol/L (135-145); Total Protein 7.1 g/dL (6.4-8.9)
[2020-01-10 14:24] LABS: Troponin I 0.07 ng/mL (<0.03)
[2020-01-10 14:47] LABS: Salicylate < 2.50 mg/dL (<30)
[2020-01-10 14:53] LABS: TSH Ultra Thyroid Stim Horm 7.38 mcIU/mL (0.34-5.60)
[2020-01-10] MEDS ORDERED: NS 0.9% 1000 ml BAG 1,000 ML IV ONE (15:08)
[2020-01-10] MEDS ORDERED: Dextrose 50% Syringe 50 ml 25 GM/50 ML SYRINGE IV PUSH PRN (15:13)
[2020-01-10] MEDS ORDERED: NS 0.9% 1000 ml BAG 1,000 ML IV SCH (15:15)
[2020-01-10 16:08] LABS: Urine Appearance Cloudy; Urine Bilirubin Negative (Negative); Urine Blood 1+ (Negative); Urine Glucose 3+(>=500 mg/dL) (Negative); Urine Ketones 1+ (Negative); Urine Nitrite Negative (Negative); Urine Protein 1+(30 mg/dL) (Negative); Urine Specific Gravity 1.028 (1.010-1.030); Urine Urobilinogen Negative (Negative)
[2020-01-10 16:14] LABS: Urine Bacteria Absent (Absent); Urine Color Yellow; Urine Red Blood Cell 2+(6-10/hpf) (Absent); Urine Squamous Epithelial Cell Present (Absent); Urine White Blood Cell 2+(11-20/hpf) (Absent)
[2020-01-10 16:37] LABS: % Iron Saturation 7 % (15-55); Iron 37 ug/dL (50-212); Total Iron Binding Capacity 526 mcg/dL (250-450); Transferrin 376 mg/dL (203-362); Unsaturated Iron Binding < 511 ug/dL
[2020-01-10 16:39] LABS: Troponin I 0.06 ng/mL (<0.03)
[2020-01-10 16:46] LABS: Ferritin 94.6 ng/mL (11-307)
[2020-01-10] MEDS ORDERED: cefTRIAXone 1 gm/50 mL NS BAG 1 GM/50 ML BAG IVPB SCH (17:30)
[2020-01-10] MEDS: Azithromycin 500 mg/250 ml NS 500 MG/250 ML BAG IVPB SCH (21:22)
[2020-01-10] MEDS ORDERED: Digoxin IV 0.5 MG/2 ML AMP (0.25 MG/ML) IV SLOW PU ONE (22:05)
[2020-01-11 07:08] LABS: INR 3.16 (0.82-1.09)
[2020-01-11 07:09] LABS: ABS Basophils 0.1 10^3/ul (0-0.2); ABS Lymphocytes 1.1 10^3/ul (1.0-4.8); ABS Monocytes 0.8 10^3/ul (0-0.8); ABS Neutrophils 7.5 10^3/ul (1.5-7.7); ABS Nucleated RBC 0.1 10^3/ul; Eosinophil % 0.2 %; Hematocrit 38 % (35-47); Hemoglobin 12.3 g/dL (12.0-16.0); Lymphocyte % 11.2 %; Mean Corpuscular HGB Conc 32 g/dL (31-36); Mean Corpuscular Hemoglobin 24 pg (27-31); Mean Corpuscular Volume 74 fL (80-97); Mean Platelet Volume 9.4 fL (7.4-10.4); Nucleated Red Blood Cells % 0.8; Platelet Count 215 10^3/uL (150-450); Red Blood Count 5.14 10^6 /uL (3.70-4.87); Red Cell Distribution Width 20 % (10-15); White Blood Count 9.4 10^3/uL (3.5-10.8)
[2020-01-11 07:44] LABS: Albumin 3.5 g/dL (3.2-5.2); Albumin/Globulin Ratio 1.1 (1-3); BUN/Creatinine Ratio 32.9 (8-20); Calcium 8.8 mg/dL (8.6-10.3); EGFR African American 85.8 (>60); EGFR Non-African American 70.9 (>60); Globulin 3.1 g/dL (2-4); HDL Cholesterol 24.1 mg/dL; Indirect Bilirubin 0.9 mg/dL (0.3-1.0); Magnesium 2.1 mg/dL (1.9-2.7); Potassium 3.9 mmol/L (3.5-5.0); Total Bilirubin 1.2 mg/dL (0.2-1.0); Total Protein 6.6 g/dL (6.4-8.9)
[2020-01-11] MEDS ORDERED: Metoprolol Tartrate 5 mg VIAL 5 ml VIAL (1 mg/ml) IV PRN (08:04)
[2020-01-11] MEDS ORDERED: Diltiazem IV push/loading dose 5 MG/ML 5 ML vial (25 mg) IV SLOW PU ONE (09:33)
[2020-01-11] MEDS ORDERED: Piperacillin/Tazobac ADVAN 3.375 GM in NS 0.9% 100 ml BAG 100 ML IV ONE (09:43)
[2020-01-11] MEDS ORDERED: Zosyn per Pharmacy NOTE FOLLOW UP SCH (10:00)
[2020-01-11] MEDS ORDERED: Lactated Ringers 500 ml BAG 500 ML IV ONE (11:02)
[2020-01-11] MEDS: ZOSYN 3.375 GM Q8H per EXTENDED INFUSION IV SCH ×2 (15:14→21:03)
[2020-01-11] MEDS: Azithromycin 500 mg/250 ml NS 500 MG/250 ML BAG IVPB SCH (17:55)
[2020-01-11] MEDS ORDERED: guaiFENesin 100 mg/5 ml LIQ unit dose cup PO PRN (23:05)
[2020-01-12] MEDS: ZOSYN 3.375 GM Q8H per EXTENDED INFUSION IV SCH ×3 (06:11→23:36)
[2020-01-12 14:06] LABS: ABS Basophils 0.1 10^3/ul (0-0.2); ABS Eosinophils 0.1 10^3/ul (0-0.6); ABS Lymphocytes 0.9 10^3/ul (1.0-4.8); ABS Monocytes 0.8 10^3/ul (0-0.8); ABS Neutrophils 5.4 10^3/ul (1.5-7.7); Eosinophil % 1.4 %; Hematocrit 37 % (35-47); Hemoglobin 11.8 g/dL (12.0-16.0); Lymphocyte % 12.2 %; Mean Corpuscular HGB Conc 32 g/dL (31-36); Mean Corpuscular Hemoglobin 24 pg (27-31); Mean Corpuscular Volume 74 fL (80-97); Mean Platelet Volume 9.3 fL (7.4-10.4); Nucleated Red Blood Cells % 0.2; Platelet Count 215 10^3/uL (150-450); Red Cell Distribution Width 20 % (10-15); White Blood Count 7.2 10^3/uL (3.5-10.8)
[2020-01-12 14:16] LABS: Ammonia 37 mcmol/L (16-53)
[2020-01-12 14:17] LABS: ALT 176 U/L (7-52); AST 52 U/L (13-39); Albumin 3.4 g/dL (3.2-5.2); Albumin/Globulin Ratio 1.2 (1-3); Alkaline Phosphatase 231 U/L (34-104); Anion Gap 7 mmol/L (2-11); BUN/Creatinine Ratio 24.3 (8-20); Blood Urea Nitrogen 26 mg/dL (6-24); CO2 Carbon Dioxide 26 mmol/L (22-32); Calcium 8.9 mg/dL (8.6-10.3); Chloride 111 mmol/L (101-111); EGFR African American 60.5 (>60); Globulin 2.9 g/dL (2-4); Glucose 233 mg/dL (70-100); Potassium 3.5 mmol/L (3.5-5.0); Sodium 144 mmol/L (135-145); Total Protein 6.3 g/dL (6.4-8.9)
[2020-01-12 14:20] LABS: Troponin I 0.03 ng/mL (<0.03)
[2020-01-12 14:22] LABS: BNP 590 pg/mL (<=100)
[2020-01-12] MEDS: Azithromycin 500 mg/250 ml NS 500 MG/250 ML BAG IVPB SCH (17:35)
[2020-01-13] MEDS ORDERED: Nitro 2% OINT (Nitroglycerin) 1 INCH/PAK TOPICAL ONE (02:53)
[2020-01-13] MEDS ORDERED: Nitro 2% OINT (Nitroglycerin) 1 INCH/PAK ONE (03:13)
[2020-01-13 03:23] LABS: BUN/Creatinine Ratio 21.9 (8-20); Calcium 8.8 mg/dL (8.6-10.3); EGFR African American 61.8 (>60); EGFR Non-African American 51.1 (>60); Magnesium 2.1 mg/dL (1.9-2.7); Potassium 3.4 mmol/L (3.5-5.0)
[2020-01-13 03:25] LABS: Troponin I 0.02 ng/mL (<0.03)
[2020-01-13] MEDS ORDERED: Potassium Chlor 20 meq TAB.ER PO ONE (03:32)
[2020-01-13] MEDS: ZOSYN 3.375 GM Q8H per EXTENDED INFUSION IV SCH ×3 (06:05→23:22)
[2020-01-13 06:46] LABS: ABS Basophils 0.1 10^3/ul (0-0.2); ABS Eosinophils 0.2 10^3/ul (0-0.6); ABS Lymphocytes 0.9 10^3/ul (1.0-4.8); ABS Monocytes 0.8 10^3/ul (0-0.8); ABS Neutrophils 4.5 10^3/ul (1.5-7.7); Eosinophil % 3.6 %; Hematocrit 35 % (35-47); Hemoglobin 11.3 g/dL (12.0-16.0); Lymphocyte % 14.3 %; Mean Corpuscular HGB Conc 32 g/dL (31-36); Mean Corpuscular Hemoglobin 24 pg (27-31); Mean Corpuscular Volume 75 fL (80-97); Mean Platelet Volume 9.5 fL (7.4-10.4); Nucleated Red Blood Cells % 0.1; Platelet Count 197 10^3/uL (150-450); Red Blood Count 4.72 10^6 /uL (3.70-4.87); Red Cell Distribution Width 20 % (10-15); White Blood Count 6.5 10^3/uL (3.5-10.8)
[2020-01-13 06:51] LABS: INR 3.65 (0.82-1.09)
[2020-01-13] MEDS ORDERED: Warfarin per PHARMACY **NOTE FOLLOW UP SCH (08:00)
[2020-01-13] MEDS: Potassium Chlor 20 meq TAB.ER PO SCH ×2 (08:11→20:47)
[2020-01-13] MEDS ORDERED: Nitro Patch/OINT Remove PATCH TOPICAL ONE (09:15)
[2020-01-13] MEDS: Warfarin DAILY REMINDER **NOTE FOLLOW UP SCH (17:49)
[2020-01-13] MEDS ORDERED: Insulin GLARGINE 100 un/ml 10 ml VIAL SUBCUT SCH (21:00)
[2020-01-13 23:33] LABS: Urine Appearance Turbid; Urine Bilirubin Negative (Negative); Urine Blood 2+ (Negative); Urine Color Yellow; Urine Glucose 2+(150 mg/dL) (Negative); Urine Ketones Negative (Negative); Urine Nitrite Negative (Negative); Urine Protein Negative (Negative); Urine Specific Gravity 1.018 (1.010-1.030); Urine Urobilinogen Negative (Negative)
[2020-01-13 23:36] LABS: Urine Bacteria Absent (Absent); Urine Red Blood Cell 3+(>10/hpf) (Absent); Urine Uric Acid Crystals Present (Absent); Urine White Blood Cell 2+(11-20/hpf) (Absent)
[2020-01-14] MEDS: ZOSYN 3.375 GM Q8H per EXTENDED INFUSION IV SCH ×3 (06:52→23:24)
[2020-01-14] MEDS: Potassium Chlor 20 meq TAB.ER PO SCH ×3 (08:37→22:08)
[2020-01-14] MEDS: Ondansetron 4 mg VIAL 2 MG/ML 2 ml VIAL IV PRN (12:56)
[2020-01-14] MEDS: Warfarin DAILY REMINDER **NOTE FOLLOW UP SCH (16:59)
[2020-01-14] MEDS: Insulin GLARGINE 100 un/ml 10 ml VIAL SUBCUT SCH (22:04)
[2020-01-15 07:29] LABS: ABS Basophils 0.1 10^3/ul (0-0.2); ABS Eosinophils 0.1 10^3/ul (0-0.6); ABS Lymphocytes 0.9 10^3/ul (1.0-4.8); ABS Monocytes 0.6 10^3/ul (0-0.8); ABS Neutrophils 4.4 10^3/ul (1.5-7.7); Eosinophil % 2.1 %; Hematocrit 36 % (35-47); Hemoglobin 11.4 g/dL (12.0-16.0); Lymphocyte % 15.4 %; Mean Corpuscular HGB Conc 32 g/dL (31-36); Mean Corpuscular Hemoglobin 24 pg (27-31); Mean Corpuscular Volume 75 fL (80-97); Mean Platelet Volume 9.2 fL (7.4-10.4); Platelet Count 200 10^3/uL (150-450); Red Cell Distribution Width 21 % (10-15); White Blood Count 6.2 10^3/uL (3.5-10.8)
[2020-01-15 07:35] LABS: INR 3.49 (0.82-1.09)
[2020-01-15] MEDS: ZOSYN 3.375 GM Q8H per EXTENDED INFUSION IV SCH ×3 (07:42→23:38)
[2020-01-15 07:48] LABS: Albumin 3.4 g/dL (3.2-5.2); Albumin/Globulin Ratio 1.2 (1-3); BUN/Creatinine Ratio 19.5 (8-20); Calcium 8.9 mg/dL (8.6-10.3); EGFR African American 82.2 (>60); Globulin 2.9 g/dL (2-4); Potassium 4.1 mmol/L (3.5-5.0); Total Bilirubin 0.7 mg/dL (0.2-1.0); Total Protein 6.3 g/dL (6.4-8.9)
[2020-01-15] MEDS: Potassium Chlor 20 meq TAB.ER PO SCH (10:10)
[2020-01-15 14:30] LABS: Magnesium 1.9 mg/dL (1.9-2.7)
[2020-01-15] MEDS: Ondansetron 4 mg VIAL 2 MG/ML 2 ml VIAL IV PRN (16:50)
[2020-01-15] MEDS: Warfarin DAILY REMINDER **NOTE FOLLOW UP SCH (16:51)
[2020-01-15] MEDS ORDERED: Magnesium Sulfate 2 GM IV (Premix) IVPB ONE (18:45)
[2020-01-15] MEDS: Insulin GLARGINE 100 un/ml 10 ml VIAL SUBCUT SCH (19:46)
[2020-01-16] MEDS: Ondansetron 4 mg VIAL 2 MG/ML 2 ml VIAL IV PRN (03:13)
[2020-01-16 07:38] LABS: INR 4.32 (0.82-1.09)
[2020-01-16] MEDS: ZOSYN 3.375 GM Q8H per EXTENDED INFUSION IV SCH (08:40)
[2020-01-16] MEDS ORDERED: Furosemide 20 mg/2 ml IV VIAL IV SLOW PU ONE (08:54)
[2020-01-16 09:52] LABS: BUN/Creatinine Ratio 35.4 (8-20); Calcium 8.9 mg/dL (8.6-10.3); EGFR African American 82.2 (>60); Potassium 4.2 mmol/L (3.5-5.0)
[2020-01-16] MEDS: Potassium Chlor 20 meq TAB.ER PO SCH (11:01)
[2020-01-16] MEDS ORDERED: Furosemide 40 mg/4 ml IV VIAL IV SLOW PU ONE (12:43)
[2020-01-16] MEDS: Warfarin DAILY REMINDER **NOTE FOLLOW UP SCH (17:00)
[2020-01-16] MEDS ORDERED: Warfarin - No Order Today **NOTE FOLLOW UP ONE (17:00)
[2020-01-16] MEDS: Insulin GLARGINE 100 un/ml 10 ml VIAL SUBCUT SCH (19:55)
[2020-01-17 07:41] LABS: Calcium 8.7 mg/dL (8.6-10.3); Magnesium 1.8 mg/dL (1.9-2.7); Potassium 4.1 mmol/L (3.5-5.0)
[2020-01-17 07:47] LABS: BUN/Creatinine Ratio 29.6 (8-20); EGFR African American 83.4 (>60); EGFR Non-African American 68.9 (>60)
[2020-01-17 08:05] LABS: INR 4.42 (0.82-1.09)
[2020-01-17] MEDS ORDERED: Magnesium Sulfate IV 3 GM in NS 0.9% 100 ml BAG 100 ML IVPB ONE (08:05)
[2020-01-17] MEDS ORDERED: Furosemide 20 mg/2 ml IV VIAL IV SLOW PU ONE (08:51)
[2020-01-17] MEDS: Potassium Chlor 20 meq TAB.ER PO SCH (10:05)
[2020-01-17] MEDS ORDERED: Piperacillin/Tazobac ADVAN 3.375 GM in NS 0.9% 100 ml BAG 100 ML IV ONE (15:30)
[2020-01-17] MEDS ORDERED: Zosyn per Pharmacy NOTE FOLLOW UP SCH (16:00)
[2020-01-17] MEDS ORDERED: Warfarin - No Order Today **NOTE FOLLOW UP SCH (17:00)
[2020-01-17] MEDS: Warfarin DAILY REMINDER **NOTE FOLLOW UP SCH (18:12)
[2020-01-17] MEDS: Insulin GLARGINE 100 un/ml 10 ml VIAL SUBCUT SCH (20:19)
[2020-01-17] MEDS: ZOSYN 3.375 GM Q8H per EXTENDED INFUSION IV SCH (20:19)
[2020-01-18] MEDS: ZOSYN 3.375 GM Q8H per EXTENDED INFUSION IV SCH ×3 (06:00→12:08)
[2020-01-18 06:47] LABS: INR 2.23 (0.82-1.09)
[2020-01-18] MEDS: Potassium Chlor 20 meq TAB.ER PO SCH (08:20)
[2020-01-18] MEDS: Ondansetron 4 mg VIAL 2 MG/ML 2 ml VIAL IV PRN (16:06)
[2020-01-18] MEDS: Warfarin DAILY REMINDER **NOTE FOLLOW UP SCH (18:27)
[2020-01-18] MEDS ORDERED: ZOSYN 3.375 GM x ONE DOSE over 30 miuntes IV (18:45)
[2020-01-18] MEDS: Insulin GLARGINE 100 un/ml 10 ml VIAL SUBCUT SCH (20:23)
[2020-01-19] MEDS: ZOSYN 3.375 GM Q8H per EXTENDED INFUSION IV SCH ×3 (00:35→17:52)
[2020-01-19 08:56] LABS: ABS Eosinophils 0.2 10^3/ul (0-0.6); ABS Lymphocytes 0.6 10^3/ul (1.0-4.8); ABS Monocytes 0.7 10^3/ul (0-0.8); ABS Neutrophils 6.6 10^3/ul (1.5-7.7); Eosinophil % 2.8 %; Hematocrit 35 % (35-47); Hemoglobin 10.9 g/dL (12.0-16.0); Lymphocyte % 7.5 %; Mean Corpuscular HGB Conc 31 g/dL (31-36); Mean Corpuscular Hemoglobin 24 pg (27-31); Mean Corpuscular Volume 75 fL (80-97); Mean Platelet Volume 9.5 fL (7.4-10.4); Platelet Count 222 10^3/uL (150-450); Red Blood Count 4.62 10^6 /uL (3.70-4.87); Red Cell Distribution Width 20 % (10-15); White Blood Count 8.2 10^3/uL (3.5-10.8)
[2020-01-19] MEDS: Potassium Chlor 20 meq TAB.ER PO SCH (09:10)
[2020-01-19 09:19] LABS: INR 2.36 (0.82-1.09)
[2020-01-19 09:21] LABS: BUN/Creatinine Ratio 22.8 (8-20); Calcium 8.4 mg/dL (8.6-10.3); EGFR African American 85.8 (>60); EGFR Non-African American 70.9 (>60); Potassium 3.7 mmol/L (3.5-5.0)
[2020-01-19] MEDS: Furosemide 40 mg/4 ml IV VIAL IV SLOW PU SCH (09:26)
[2020-01-19] MEDS: Insulin GLARGINE 100 un/ml 10 ml VIAL SUBCUT SCH (21:21)
[2020-01-20] MEDS: ZOSYN 3.375 GM Q8H per EXTENDED INFUSION IV SCH ×3 (00:56→17:09)
[2020-01-20 06:43] LABS: Calcium 8.4 mg/dL (8.6-10.3); EGFR African American 83.4 (>60); EGFR Non-African American 68.9 (>60); Magnesium 1.8 mg/dL (1.9-2.7); Potassium 3.4 mmol/L (3.5-5.0)
[2020-01-20 06:43] LABS: INR 2.79 (0.82-1.09)
[2020-01-20] MEDS ORDERED: Magnesium Sulfate 2 gm BAG 2 GM/50 ML BAG IVPB ONE (07:07)
[2020-01-20] MEDS ORDERED: Potassium Chlor 20 meq TAB.ER PO ONE (07:08)
[2020-01-20] MEDS: Furosemide 40 mg/4 ml IV VIAL IV SLOW PU SCH ×2 (08:34→08:45)
[2020-01-20] MEDS: Escitalopram SOLN ORALSYR 5 MG/5 ML PO SCH ×2 (08:43→09:36)
[2020-01-20] MEDS: Potassium Chlor 20 meq TAB.ER PO SCH (08:57)
[2020-01-20] MEDS ORDERED: HYDROmorphone 0.5 MG/0.5 ML SYRINGE IV PRN (14:05)
[2020-01-20] MEDS: Insulin GLARGINE 100 un/ml 10 ml VIAL SUBCUT SCH (21:12)
[2020-01-21] MEDS: ZOSYN 3.375 GM Q8H per EXTENDED INFUSION IV SCH ×2 (00:11→08:22)
[2020-01-21] MEDS: Potassium Chlor 20 meq TAB.ER PO SCH (08:23)
[2020-01-21] MEDS: Escitalopram SOLN ORALSYR 5 MG/5 ML PO SCH (08:48)
[2020-01-21] MEDS: Ondansetron 4 mg VIAL 2 MG/ML 2 ml VIAL IV PRN (10:43)
[2020-01-21] MEDS: Insulin GLARGINE 100 un/ml 10 ml VIAL SUBCUT SCH (20:59)
[2020-01-22 08:30] LABS: ABS Basophils 0.1 10^3/ul (0-0.2); ABS Eosinophils 0.1 10^3/ul (0-0.6); ABS Lymphocytes 0.8 10^3/ul (1.0-4.8); ABS Monocytes 0.7 10^3/ul (0-0.8); ABS Neutrophils 4.3 10^3/ul (1.5-7.7); Eosinophil % 2.2 %; Hematocrit 36 % (35-47); Hemoglobin 11.3 g/dL (12.0-16.0); Lymphocyte % 13.7 %; Mean Corpuscular HGB Conc 31 g/dL (31-36); Mean Corpuscular Hemoglobin 24 pg (27-31); Mean Corpuscular Volume 75 fL (80-97); Nucleated Red Blood Cells % 0.1; Platelet Count 275 10^3/uL (150-450); Red Blood Count 4.79 10^6 /uL (3.70-4.87); Red Cell Distribution Width 21 % (10-15)
[2020-01-22 08:48] LABS: BUN/Creatinine Ratio 15.9 (8-20); Calcium 8.5 mg/dL (8.6-10.3); EGFR African American 100.4 (>60); EGFR Non-African American 82.9 (>60); Potassium 3.2 mmol/L (3.5-5.0)
[2020-01-22] MEDS: Potassium Chlor 20 meq TAB.ER PO SCH (08:58)
[2020-01-22] MEDS: Escitalopram SOLN ORALSYR 5 MG/5 ML PO SCH (09:03)
[2020-01-22] MEDS ORDERED: Potassium Chlor 20 meq TAB.ER PO ONE (11:04)
[2020-01-22 15:41] VITALS: BP 112/72
== END 2020-01-22 15:30 | disposition swing bed (61) | DRG 64 ==
LOC: ED 12:53 → MEDTELE 14:55
PROVIDERS: ADMIT Student in an Organized Health Care Education/Training Program; ATTEND Internal Medicine